=== PATIENT | male | born 1955 | race Caucasian/White ===

== ENCOUNTER 2022-05-29 22:20 | Inpatient (IN) ==
[2022-05-30] MEDS ORDERED: Ondansetron 4 MG/2 ML VIAL IVP PRN (06:42)
[2022-05-30] MEDS ORDERED: Naloxone 0.4 MG/ML INJ IVP PRN ×2 (06:42→09:34)
[2022-05-30 08:12] LABS: Basophils % 0.4 %; Eosinophils % 0.5 %; Hematocrit 34.9 % (37.5-50.1); Hemoglobin 12.8 g/dL (12.9-16.9); Lymphocytes # 0.4 K/mcL (0.6-4.6); Lymphocytes % 5.2 %; Mean Corpuscular HGB Conc 36.7 g/dL (31.6-35.5); Mean Corpuscular Hemoglobin 33.7 pg (28.0-33.3); Mean Corpuscular Volume 91.8 fL (83.0-100.0); Mean Platelet Volume 9.8 fL (9.4-12.4); Monocytes % 12.1 %; Neutrophils # 6.4 K/mcL (1.6-8.9); Platelet Count 235 K/mcL (140-400); Red Cell Distribution Width 11.6 % (11.5-14.5); Segmented Neutrophils % 80.8 %; White Blood Count 7.9 K/mcL (4.3-11.1)
[2022-05-30 08:21] LABS: INR 0.9; Prothrombin Time 9.9 Seconds (9.4-12.1)
[2022-05-30 08:25] LABS: Bilirubin,Urine Negative (Negative); Blood,Urine Negative (Negative); Clarity,Urine Clear (Clear); Color,Urine Light-Orange (Yellow); Glucose,Urine (UA) Normal (Normal); Ketones,Urine 40 mg/dL (Negative); Leukocyte Esterase,Urine Negative (Negative); Nitrite,Urine Negative (Negative); Protein,Urine Trace mg/dL (Neg-Trace); Specific Gravity,Urine 1.016 (1.010-1.025); Urobilinogen,Urine Normal (Normal)
[2022-05-30 08:38] LABS: Phosphorous 2.4 mg/dL (2.7-4.5)
[2022-05-30 08:49] LABS: Troponin I 0.05 ng/mL (< 0.04)
[2022-05-30 08:51] LABS: Alanine Aminotransferase 14 Units/L (7-52); Albumin 3.1 g/dL (3.5-5.7); Albumin/Globulin Ratio 1.5 (1.1-2.2); Alkaline Phosphatase 82 Units/L (34-104); Aspartate Amino Transferase 19 Units/L (13-39); BUN/Creatinine Ratio 25 (6-26); Bilirubin,Direct 0.2 mg/dL (0.0-0.2); Bilirubin,Indirect 0.6 mg/dL (0.0-1.0); Bilirubin,Total 0.8 mg/dL (0.3-1.0); Blood Urea Nitrogen 9 mg/dL (8-23); Calcium 7.9 mg/dL (8.6-10.3); Carbon Dioxide 25 mEq/L (23-29); Chloride 80 mEq/L (98-107); Globulin 2.1 g/dL (2.4-3.5); Glucose 89 mg/dL (70-105); Osmolality,Calculated 238 (280-300); Potassium 3.1 mEq/L (3.5-5.1); Sodium 115 mEq/L (136-145); Thyroid Stimulating Hormone 3.987 mcIU/mL (0.340-5.600); Total Protein 5.2 g/dL (6.4-8.9); eGFR For African Americans > 60 (> 60); eGFR For Non-African Americans > 60 (> 60)
[2022-05-30] MEDS ORDERED: *HR* LORazepam 2 MG/ML VIAL IVP PRN ×3 (09:34)
[2022-05-30 09:51] LABS: Chloride,Urine 29 mEq/L; Potassium,Urine 26.8 mEq/L; Sodium, Urine < 10.0 mEq/L
[2022-05-30] MEDS ORDERED: Perflutren Lipid Microsphere 1.3 ML in 0.9 % Sodium Chloride 8.7 ML IVP PRN (09:52)
[2022-05-30] MEDS: Folic Acid 1 MG TABLET PO SCH (10:15)
[2022-05-30] MEDS: Vitamin B Complex/Vit C/Vit E 1 EACH TABLET PO SCH (10:15)
[2022-05-30] MEDS: Thiamine (B-1) 100 MG TABLET PO SCH (10:15)
[2022-05-30 12:54] LABS: BUN/Creatinine Ratio 26 (6-26); Blood Urea Nitrogen 9 mg/dL (8-23); Carbon Dioxide 24 mEq/L (23-29); Chloride 80 mEq/L (98-107); Glucose 95 mg/dL (70-105); Osmolality,Calculated 236 (280-300); Potassium 3.2 mEq/L (3.5-5.1); Sodium 114 mEq/L (136-145); eGFR For African Americans > 60 (> 60); eGFR For Non-African Americans > 60 (> 60)
[2022-05-30] MEDS: Ipratropium/Albuterol Neb 3 ML IH PRN (21:26)
[2022-05-30] MEDS: 0.9 % Sodium Chloride 1,000 ML IVC SCH (21:30)
[2022-05-30 22:11] LABS: BUN/Creatinine Ratio 27 (6-26); Blood Urea Nitrogen 9 mg/dL (8-23); Calcium 8.2 mg/dL (8.6-10.3); Carbon Dioxide 25 mEq/L (23-29); Chloride 82 mEq/L (98-107); Glucose 99 mg/dL (70-105); Osmolality,Calculated 243 (280-300); Potassium 3.1 mEq/L (3.5-5.1); Sodium 117 mEq/L (136-145); eGFR For African Americans > 60 (> 60); eGFR For Non-African Americans > 60 (> 60)
[2022-05-31] MEDS: [UNRECOGNIZED DRUG - OTHER] IH SCH ×3 (00:26→21:05)
[2022-05-31] MEDS: BEVESPI AEROSPHERE IH SCH ×3 (00:26→21:05)
[2022-05-31] MEDS ORDERED: Mag Hydrox/Al Hydrox/Simeth 30 ML UDC PO PRN (00:54)
[2022-05-31 03:13] LABS: Basophils % 0.3 %; Eosinophils % 0.4 %; Hematocrit 35.1 % (37.5-50.1); Hemoglobin 12.9 g/dL (12.9-16.9); Immature Granulocytes % 1.6 % (0-4); Lymphocytes # 0.5 K/mcL (0.6-4.6); Lymphocytes % 7.9 %; Mean Corpuscular HGB Conc 36.8 g/dL (31.6-35.5); Mean Corpuscular Hemoglobin 33.7 pg (28.0-33.3); Mean Corpuscular Volume 91.6 fL (83.0-100.0); Monocytes # 0.7 K/mcL (0.0-1.3); Monocytes % 10.4 %; Neutrophils # 5.4 K/mcL (1.6-8.9); Platelet Count 268 K/mcL (140-400); Red Blood Count 3.83 M/mcL (4.19-5.50); Red Cell Distribution Width 11.7 % (11.5-14.5); Segmented Neutrophils % 79.4 %; White Blood Count 6.8 K/mcL (4.3-11.1)
[2022-05-31 03:47] LABS: Alanine Aminotransferase 15 Units/L (7-52); Albumin 3.1 g/dL (3.5-5.7); Albumin/Globulin Ratio 1.3 (1.1-2.2); Alkaline Phosphatase 81 Units/L (34-104); Aspartate Amino Transferase 20 Units/L (13-39); BUN/Creatinine Ratio 24 (6-26); Bilirubin,Total 0.7 mg/dL (0.3-1.0); Blood Urea Nitrogen 9 mg/dL (8-23); Calcium 8.3 mg/dL (8.6-10.3); Carbon Dioxide 26 mEq/L (23-29); Chloride 81 mEq/L (98-107); Globulin 2.3 g/dL (2.4-3.5); Glucose 98 mg/dL (70-105); Osmolality,Calculated 243 (280-300); Phosphorous 2.6 mg/dL (2.7-4.5); Potassium 3.3 mEq/L (3.5-5.1); Sodium 117 mEq/L (136-145); Total Protein 5.4 g/dL (6.4-8.9); eGFR For African Americans > 60 (> 60); eGFR For Non-African Americans > 60 (> 60)
[2022-05-31] MEDS: Thiamine (B-1) 100 MG TABLET PO SCH (08:16)
[2022-05-31] MEDS: Aspirin Enteric Coated 81 MG Tablet PO SCH (08:16)
[2022-05-31] MEDS: amLODIPine 5 MG TABLET PO SCH (08:16)
[2022-05-31] MEDS: Folic Acid 1 MG TABLET PO SCH ×2 (08:17→08:18)
[2022-05-31] MEDS: atenoloL 50 MG TABLET PO SCH (08:17)
[2022-05-31] MEDS: Vitamin B Complex/Vit C/Vit E 1 EACH TABLET PO SCH (08:17)
[2022-05-31] MEDS: Thiamine (B-1) 250 MG in 0.9 % Sodium Chloride 50 ML IVPB SCH ×3 (10:57→22:00)
[2022-05-31 13:05] LABS: BUN/Creatinine Ratio 33 (6-26); Blood Urea Nitrogen 13 mg/dL (8-23); Calcium 8.2 mg/dL (8.6-10.3); Carbon Dioxide 25 mEq/L (23-29); Chloride 86 mEq/L (98-107); Glucose 102 mg/dL (70-105); Osmolality,Calculated 250 (280-300); Potassium 3.3 mEq/L (3.5-5.1); Sodium 120 mEq/L (136-145); eGFR For African Americans > 60 (> 60); eGFR For Non-African Americans > 60 (> 60)
[2022-05-31] MEDS: *HR* Heparin 5,000 UNIT/ML VIAL SQ SCH (20:39)
[2022-05-31] MEDS: Ipratropium/Albuterol Neb 3 ML IH PRN (21:39)
[2022-06-01 01:38] LABS: Adenovirus Not Detected (Not Detect); Bordetella Pertussis Not Detected (Not Detect); Chlamydophila pneumoniae Not Detected (Not Detect); Coronavirus 229E Not Detected (Not Detect); Coronavirus HKU1 Not Detected (Not Detect); Coronavirus NL63 Not Detected (Not Detect); Coronavirus OC43 Not Detected (Not Detect); Human Metapneumovirus Not Detected (Not Detect); Human Rhinovirus/Enterovirus Not Detected (Not Detect); Influenza A Subtype 2009 H1 Not Detected (Not Detect); Influenza B Not Detected (Not Detect); Mycoplasma pneumoniae Not Detected (Not Detect); Parainfluenza Virus 1 Not Detected (Not Detect); Parainfluenza Virus 2 Not Detected (Not Detect); Parainfluenza Virus 3 Not Detected (Not Detect); Parainfluenza Virus 4 Not Detected (Not Detect); Respiratory Syncytial Virus Not Detected (Not Detect); SARS-CoV-2 Not Detected (Not Detect)
[2022-06-01 02:07] LABS: Basophils % 0.3 %; Eosinophils % 0.3 %; Hematocrit 32.5 % (37.5-50.1); Hemoglobin 11.9 g/dL (12.9-16.9); Lymphocytes # 0.5 K/mcL (0.6-4.6); Lymphocytes % 5.2 %; Mean Corpuscular HGB Conc 36.6 g/dL (31.6-35.5); Mean Corpuscular Hemoglobin 34.1 pg (28.0-33.3); Mean Corpuscular Volume 93.1 fL (83.0-100.0); Mean Platelet Volume 9.7 fL (9.4-12.4); Monocytes # 0.9 K/mcL (0.0-1.3); Monocytes % 8.8 %; Neutrophils # 8.5 K/mcL (1.6-8.9); Platelet Count 267 K/mcL (140-400); Red Blood Count 3.49 M/mcL (4.19-5.50); Red Cell Distribution Width 11.9 % (11.5-14.5); Segmented Neutrophils % 84.4 %
[2022-06-01] MEDS: *HR* Heparin 5,000 UNIT/ML VIAL SQ SCH ×3 (05:22→21:47)
[2022-06-01] MEDS: Ipratropium/Albuterol Neb 3 ML IH PRN (08:56)
[2022-06-01] MEDS: Folic Acid 1 MG TABLET PO SCH (09:18)
[2022-06-01] MEDS: amLODIPine 5 MG TABLET PO SCH (09:18)
[2022-06-01] MEDS: Thiamine (B-1) 250 MG in 0.9 % Sodium Chloride 50 ML IVPB SCH ×3 (09:18→23:13)
[2022-06-01] MEDS: atenoloL 50 MG TABLET PO SCH (09:18)
[2022-06-01] MEDS: Aspirin Enteric Coated 81 MG Tablet PO SCH (09:18)
[2022-06-01] MEDS: Vitamin B Complex/Vit C/Vit E 1 EACH TABLET PO SCH (09:18)
[2022-06-01] MEDS: BEVESPI AEROSPHERE IH SCH (10:01)
[2022-06-01] MEDS: [UNRECOGNIZED DRUG - OTHER] IH SCH (10:01)
[2022-06-01 12:20] LABS: BUN/Creatinine Ratio 37 (6-26); Blood Urea Nitrogen 18 mg/dL (8-23); Calcium 8.5 mg/dL (8.6-10.3); Carbon Dioxide 24 mEq/L (23-29); Chloride 88 mEq/L (98-107); Glucose 115 mg/dL (70-105); Osmolality,Calculated 255 (280-300); Potassium 3.9 mEq/L (3.5-5.1); Sodium 121 mEq/L (136-145); eGFR For African Americans > 60 (> 60); eGFR For Non-African Americans > 60 (> 60)
[2022-06-01] MEDS: 0.9 % Sodium Chloride 1,000 ML IVC SCH (13:29)
[2022-06-01] MEDS: Sennosides/Docusate Sodium TABLET PO SCH ×2 (13:35→21:46)
[2022-06-01] MEDS ORDERED: methylPREDNISolone 125 MG/2 ML VIAL IVP ONE (13:47)
[2022-06-01 14:11] LABS: BUN/Creatinine Ratio 38 (6-26); Blood Urea Nitrogen 18 mg/dL (8-23); Calcium 8.5 mg/dL (8.6-10.3); Carbon Dioxide 25 mEq/L (23-29); Chloride 88 mEq/L (98-107); Glucose 106 mg/dL (70-105); Osmolality,Calculated 254 (280-300); Potassium 4.1 mEq/L (3.5-5.1); Sodium 121 mEq/L (136-145); eGFR For African Americans > 60 (> 60); eGFR For Non-African Americans > 60 (> 60)
[2022-06-01 14:14] LABS: BUN/Creatinine Ratio 41 (6-26); Blood Urea Nitrogen 18 mg/dL (8-23); Calcium 8.3 mg/dL (8.6-10.3); Carbon Dioxide 24 mEq/L (23-29); Chloride 88 mEq/L (98-107); Glucose 103 mg/dL (70-105); Osmolality,Calculated 252 (280-300); Potassium 4.2 mEq/L (3.5-5.1); Sodium 120 mEq/L (136-145); eGFR For African Americans > 60 (> 60); eGFR For Non-African Americans > 60 (> 60)
[2022-06-01] MEDS: Ipratropium/Albuterol Neb 3 ML IH SCH ×3 (15:57→23:51)
[2022-06-01] MEDS: MethylPREDNISolone 40 MG/ML VIAL IVP SCH (18:23)
[2022-06-01] MEDS: GuaiFENesin/Dextromethorphan TABLET PO SCH (22:00)
[2022-06-02] MEDS: Ipratropium/Albuterol Neb 3 ML IH SCH ×6 (04:01→23:10)
[2022-06-02 06:15] LABS: Basophils % 0.2 %; Hematocrit 33.7 % (37.5-50.1); Hemoglobin 12.1 g/dL (12.9-16.9); Immature Granulocytes % 1.1 % (0-4); Lymphocytes # 0.5 K/mcL (0.6-4.6); Lymphocytes % 3.1 %; Mean Corpuscular HGB Conc 35.9 g/dL (31.6-35.5); Mean Corpuscular Hemoglobin 34.1 pg (28.0-33.3); Mean Corpuscular Volume 94.9 fL (83.0-100.0); Mean Platelet Volume 9.6 fL (9.4-12.4); Monocytes # 0.7 K/mcL (0.0-1.3); Monocytes % 3.8 %; Platelet Count 282 K/mcL (140-400); Red Blood Count 3.55 M/mcL (4.19-5.50); Segmented Neutrophils % 91.8 %
[2022-06-02 06:17] LABS: White Blood Count 17.4 K/mcL (4.3-11.1)
[2022-06-02] MEDS: *HR* Heparin 5,000 UNIT/ML VIAL SQ SCH ×3 (06:29→19:40)
[2022-06-02] MEDS: MethylPREDNISolone 40 MG/ML VIAL IVP SCH ×2 (06:29→18:25)
[2022-06-02] MEDS: 0.9 % Sodium Chloride 1,000 ML IVC SCH ×2 (06:30→13:22)
[2022-06-02 07:23] LABS: BUN/Creatinine Ratio 43 (6-26); Blood Urea Nitrogen 24 mg/dL (8-23); Calcium 8.6 mg/dL (8.6-10.3); Carbon Dioxide 18 mEq/L (23-29); Chloride 90 mEq/L (98-107); Glucose 133 mg/dL (70-105); Osmolality,Calculated 258 (280-300); Potassium 4.6 mEq/L (3.5-5.1); Sodium 121 mEq/L (136-145); eGFR For African Americans > 60 (> 60); eGFR For Non-African Americans > 60 (> 60)
[2022-06-02] MEDS: Aspirin Enteric Coated 81 MG Tablet PO SCH (10:31)
[2022-06-02] MEDS: atenoloL 50 MG TABLET PO SCH (10:39)
[2022-06-02] MEDS: Folic Acid 1 MG TABLET PO SCH (10:41)
[2022-06-02] MEDS: amLODIPine 5 MG TABLET PO SCH (10:42)
[2022-06-02] MEDS: Sennosides/Docusate Sodium TABLET PO SCH ×2 (10:42→19:39)
[2022-06-02] MEDS: GuaiFENesin/Dextromethorphan TABLET PO SCH ×2 (10:42→19:40)
[2022-06-02] MEDS: Vitamin B Complex/Vit C/Vit E 1 EACH TABLET PO SCH (10:42)
[2022-06-02] MEDS ORDERED: Azithromycin 250 MG TABLET PO ONE (11:29)
[2022-06-02 11:58] LABS: VBG HCO3 21 mEq/L (21-27); VBG PCO2 37 mmHg (41-51); VBG PH 7.36 pH Units (7.32-7.42); VBG PO2 40 mmHg (25-50)
[2022-06-02 12:39] LABS: BUN/Creatinine Ratio 41 (6-26); Blood Urea Nitrogen 26 mg/dL (8-23); Calcium 8.6 mg/dL (8.6-10.3); Carbon Dioxide 20 mEq/L (23-29); Chloride 89 mEq/L (98-107); Glucose 133 mg/dL (70-105); Osmolality,Calculated 261 (280-300); Potassium 4.5 mEq/L (3.5-5.1); Sodium 122 mEq/L (136-145); eGFR For African Americans > 60 (> 60); eGFR For Non-African Americans > 60 (> 60)
[2022-06-02] MEDS: Thiamine (B-1) 100 MG TABLET PO SCH (13:22)
[2022-06-03 01:32] LABS: Basophils % 0.1 %; Hematocrit 35.4 % (37.5-50.1); Hemoglobin 12.6 g/dL (12.9-16.9); Immature Granulocytes % 1.3 % (0-4); Lymphocytes # 0.4 K/mcL (0.6-4.6); Mean Corpuscular HGB Conc 35.6 g/dL (31.6-35.5); Mean Corpuscular Volume 95.4 fL (83.0-100.0); Mean Platelet Volume 9.7 fL (9.4-12.4); Monocytes % 5.1 %; Neutrophils # 18.4 K/mcL (1.6-8.9); Platelet Count 294 K/mcL (140-400); Red Blood Count 3.71 M/mcL (4.19-5.50); Red Cell Distribution Width 12.3 % (11.5-14.5); Segmented Neutrophils % 91.5 %; White Blood Count 20.1 K/mcL (4.3-11.1)
[2022-06-03 01:48] LABS: BUN/Creatinine Ratio 50 (6-26); Blood Urea Nitrogen 30 mg/dL (8-23); Calcium 8.7 mg/dL (8.6-10.3); Carbon Dioxide 21 mEq/L (23-29); Chloride 92 mEq/L (98-107); Glucose 139 mg/dL (70-105); Osmolality,Calculated 268 (280-300); Potassium 4.5 mEq/L (3.5-5.1); Sodium 125 mEq/L (136-145); eGFR For African Americans > 60 (> 60); eGFR For Non-African Americans > 60 (> 60)
[2022-06-03] MEDS: Ipratropium/Albuterol Neb 3 ML IH SCH ×4 (03:48→15:53)
[2022-06-03] MEDS: *HR* Heparin 5,000 UNIT/ML VIAL SQ SCH ×3 (05:49→20:29)
[2022-06-03] MEDS: MethylPREDNISolone 40 MG/ML VIAL IVP SCH (05:50)
[2022-06-03] MEDS ORDERED: Thiamine (B-1) 100 MG TABLET PO SCH (09:00)
[2022-06-03] MEDS: Vitamin B Complex/Vit C/Vit E 1 EACH TABLET PO SCH (09:07)
[2022-06-03] MEDS: Folic Acid 1 MG TABLET PO SCH (09:07)
[2022-06-03] MEDS: GuaiFENesin/Dextromethorphan TABLET PO SCH ×2 (09:07→20:29)
[2022-06-03] MEDS: amLODIPine 5 MG TABLET PO SCH (09:07)
[2022-06-03] MEDS: Azithromycin 250 MG TABLET PO SCH (09:07)
[2022-06-03] MEDS: Sennosides/Docusate Sodium TABLET PO SCH ×2 (09:07→20:29)
[2022-06-03] MEDS: Thiamine (B-1) 100 MG TABLET PO SCH (09:08)
[2022-06-03] MEDS: Aspirin Enteric Coated 81 MG Tablet PO SCH (09:08)
[2022-06-03] MEDS: atenoloL 50 MG TABLET PO SCH (09:08)
[2022-06-03] MEDS: 0.9 % Sodium Chloride 1,000 ML IVC SCH (12:00)
[2022-06-03] MEDS: predniSONE 20 MG TABLET PO SCH (15:41)
[2022-06-03] MEDS ORDERED: Ipratropium/Albuterol Neb 3 ML IH PRN (17:54)
[2022-06-04 03:02] LABS: Hematocrit 34.4 % (37.5-50.1); Hemoglobin 12.1 g/dL (12.9-16.9); Mean Corpuscular HGB Conc 35.2 g/dL (31.6-35.5); Mean Corpuscular Hemoglobin 33.7 pg (28.0-33.3); Mean Corpuscular Volume 95.8 fL (83.0-100.0); Platelet Count 280 K/mcL (140-400); Red Blood Count 3.59 M/mcL (4.19-5.50); Red Cell Distribution Width 12.4 % (11.5-14.5); White Blood Count 14.2 K/mcL (4.3-11.1)
[2022-06-04 03:09] LABS: BUN/Creatinine Ratio 49 (6-26); Blood Urea Nitrogen 33 mg/dL (8-23); Calcium 8.9 mg/dL (8.6-10.3); Carbon Dioxide 24 mEq/L (23-29); Chloride 94 mEq/L (98-107); Glucose 145 mg/dL (70-105); Osmolality,Calculated 272 (280-300); Potassium 4.4 mEq/L (3.5-5.1); Sodium 126 mEq/L (136-145); eGFR For African Americans > 60 (> 60); eGFR For Non-African Americans > 60 (> 60)
[2022-06-04] MEDS: *HR* Heparin 5,000 UNIT/ML VIAL SQ SCH ×3 (04:59→22:41)
[2022-06-04] MEDS: 0.9 % Sodium Chloride 1,000 ML IVC SCH (07:54)
[2022-06-04] MEDS: Thiamine (B-1) 100 MG TABLET PO SCH (07:55)
[2022-06-04] MEDS: GuaiFENesin/Dextromethorphan TABLET PO SCH ×2 (07:55→20:10)
[2022-06-04] MEDS: atenoloL 50 MG TABLET PO SCH (07:55)
[2022-06-04] MEDS: amLODIPine 5 MG TABLET PO SCH (07:55)
[2022-06-04] MEDS: Azithromycin 250 MG TABLET PO SCH (07:55)
[2022-06-04] MEDS: Sennosides/Docusate Sodium TABLET PO SCH ×2 (07:55→20:10)
[2022-06-04] MEDS: Aspirin Enteric Coated 81 MG Tablet PO SCH (07:55)
[2022-06-04] MEDS: predniSONE 20 MG TABLET PO SCH (07:55)
[2022-06-04] MEDS: Folic Acid 1 MG TABLET PO SCH (07:55)
[2022-06-04] MEDS: Megestrol Acetate 400 MG/10 ML UDC PO SCH (14:46)
[2022-06-04] MEDS: Vitamin B Complex/Vit C/Vit E 1 EACH TABLET PO SCH (14:46)
[2022-06-04] MEDS: MOM Conc 10 ML UD.LIQ PO ONE ×2 (14:47→15:34)
[2022-06-04 16:36] LABS: Bacteria,Urine Few per hpf (None-Few); Bilirubin,Urine Negative (Negative); Blood,Urine Large (Negative); Clarity,Urine Turbid (Clear); Color,Urine Yellow (Yellow); Glucose,Urine (UA) Normal (Normal); Ketones,Urine Negative (Negative); Leukocyte Esterase,Urine Small (Negative); Nitrite,Urine Negative (Negative); Protein,Urine Trace mg/dL (Neg-Trace); RBC,Urine 15-30 per hpf (0-3); Specific Gravity,Urine 1.017 (1.010-1.025); Urobilinogen,Urine Normal (Normal)
[2022-06-05] MEDS: 0.9 % Sodium Chloride 1,000 ML IVC SCH (00:03)
[2022-06-05 02:06] LABS: Hematocrit 33.4 % (37.5-50.1); Hemoglobin 11.6 g/dL (12.9-16.9); Mean Corpuscular HGB Conc 34.7 g/dL (31.6-35.5); Mean Corpuscular Hemoglobin 33.5 pg (28.0-33.3); Mean Corpuscular Volume 96.5 fL (83.0-100.0); Mean Platelet Volume 9.9 fL (9.4-12.4); Platelet Count 265 K/mcL (140-400); Red Blood Count 3.46 M/mcL (4.19-5.50); Red Cell Distribution Width 12.5 % (11.5-14.5); White Blood Count 10.9 K/mcL (4.3-11.1)
[2022-06-05 02:25] LABS: BUN/Creatinine Ratio 53 (6-26); Blood Urea Nitrogen 25 mg/dL (8-23); Calcium 8.7 mg/dL (8.6-10.3); Carbon Dioxide 27 mEq/L (23-29); Chloride 96 mEq/L (98-107); Glucose 113 mg/dL (70-105); Osmolality,Calculated 273 (280-300); Potassium 4.2 mEq/L (3.5-5.1); Sodium 129 mEq/L (136-145); eGFR For African Americans > 60 (> 60); eGFR For Non-African Americans > 60 (> 60)
[2022-06-05] MEDS: *HR* Heparin 5,000 UNIT/ML VIAL SQ SCH ×3 (05:45→19:58)
[2022-06-05] MEDS ORDERED: Lidocaine -MPF 2% 5 ML VIAL ONE (09:21)
[2022-06-05] MEDS ORDERED: *HR* Propofol 200 MG/20 ML VIAL IVP ONE (09:21)
[2022-06-05] MEDS ORDERED: *HR* Succinylcholine 200 MG/10 ML VIAL IVP ONE (09:21)
[2022-06-05] MEDS: Thiamine (B-1) 100 MG TABLET PO SCH ×2 (10:20→11:55)
[2022-06-05] MEDS: predniSONE 20 MG TABLET PO SCH (10:20)
[2022-06-05] MEDS: GuaiFENesin/Dextromethorphan TABLET PO SCH ×3 (10:21→19:58)
[2022-06-05] MEDS: amLODIPine 5 MG TABLET PO SCH ×2 (10:21→11:54)
[2022-06-05] MEDS: atenoloL 50 MG TABLET PO SCH ×2 (10:21→11:55)
[2022-06-05] MEDS: Azithromycin 250 MG TABLET PO SCH ×2 (10:21→11:55)
[2022-06-05] MEDS: Aspirin Enteric Coated 81 MG Tablet PO SCH ×2 (10:21→11:54)
[2022-06-05] MEDS: Vitamin B Complex/Vit C/Vit E 1 EACH TABLET PO SCH ×2 (10:21→11:55)
[2022-06-05] MEDS: Folic Acid 1 MG TABLET PO SCH ×2 (10:21→11:54)
[2022-06-05] MEDS: Sennosides/Docusate Sodium TABLET PO SCH ×3 (10:22→19:58)
[2022-06-05] MEDS: Megestrol Acetate 400 MG/10 ML UDC PO SCH ×2 (10:22→11:54)
[2022-06-05] MEDS ORDERED: *HR* Vasopressin 20 UNIT/ML VIAL ONE (14:15)
[2022-06-05] MEDS ORDERED: Ipratropium/Albuterol Neb 3 ML IH ONE (15:11)
[2022-06-05] MEDS ORDERED: Ipratropium/Albuterol Neb 3 ML IH SCH (16:00)
[2022-06-06 02:47] LABS: Basophils % 0.2 %; Hematocrit 31.9 % (37.5-50.1); Immature Granulocytes % 1.3 % (0-4); Lymphocytes # 0.6 K/mcL (0.6-4.6); Lymphocytes % 5.1 %; Mean Corpuscular HGB Conc 34.5 g/dL (31.6-35.5); Mean Corpuscular Hemoglobin 34.3 pg (28.0-33.3); Mean Corpuscular Volume 99.4 fL (83.0-100.0); Mean Platelet Volume 9.7 fL (9.4-12.4); Monocytes # 0.7 K/mcL (0.0-1.3); Monocytes % 5.5 %; Neutrophils # 10.8 K/mcL (1.6-8.9); Platelet Count 230 K/mcL (140-400); Red Blood Count 3.21 M/mcL (4.19-5.50); Red Cell Distribution Width 12.7 % (11.5-14.5); Segmented Neutrophils % 87.9 %; White Blood Count 12.3 K/mcL (4.3-11.1)
[2022-06-06 03:05] LABS: BUN/Creatinine Ratio 59 (6-26); Blood Urea Nitrogen 22 mg/dL (8-23); Calcium 8.4 mg/dL (8.6-10.3); Carbon Dioxide 25 mEq/L (23-29); Chloride 102 mEq/L (98-107); Glucose 107 mg/dL (70-105); Osmolality,Calculated 280 (280-300); Potassium 4.7 mEq/L (3.5-5.1); Sodium 133 mEq/L (136-145); eGFR For African Americans > 60 (> 60); eGFR For Non-African Americans > 60 (> 60)
[2022-06-06] MEDS: *HR* Heparin 5,000 UNIT/ML VIAL SQ SCH ×3 (04:33→21:32)
[2022-06-06] MEDS: Folic Acid 1 MG TABLET PO SCH (07:47)
[2022-06-06] MEDS: GuaiFENesin/Dextromethorphan TABLET PO SCH ×2 (07:47→21:31)
[2022-06-06] MEDS: Aspirin Enteric Coated 81 MG Tablet PO SCH (07:47)
[2022-06-06] MEDS: amLODIPine 5 MG TABLET PO SCH (07:47)
[2022-06-06] MEDS: Vitamin B Complex/Vit C/Vit E 1 EACH TABLET PO SCH (07:47)
[2022-06-06] MEDS: Thiamine (B-1) 100 MG TABLET PO SCH (07:48)
[2022-06-06] MEDS: Azithromycin 250 MG TABLET PO SCH (07:48)
[2022-06-06] MEDS: Sennosides/Docusate Sodium TABLET PO SCH ×2 (07:48→21:31)
[2022-06-06] MEDS: atenoloL 50 MG TABLET PO SCH (07:48)
[2022-06-06] MEDS: Megestrol Acetate 400 MG/10 ML UDC PO SCH (07:49)
[2022-06-06] MEDS ORDERED: Cefepime HCl 2,000 MG in 0.9 % Sodium Chloride Mini Bag 100 ML IVPB SCH (08:34)
[2022-06-06] MEDS ORDERED: Vancomycin 1,250 MG/262.5 ML IV.SOLN IVPB SCH (09:00)
[2022-06-06] MEDS: predniSONE 20 MG TABLET PO SCH (09:57)
[2022-06-06] MEDS: Amoxicillin 500 MG CAPSULE PO SCH ×2 (15:12→21:31)
[2022-06-06] MEDS: Lactobacillus 1 EACH CAP.SPRINK PO SCH (21:31)
[2022-06-07 05:43] LABS: Basophils % 0.2 %; Eosinophils % 0.1 %; Hematocrit 30.6 % (37.5-50.1); Hemoglobin 10.5 g/dL (12.9-16.9); Immature Granulocytes % 1.3 % (0-4); Lymphocytes # 0.8 K/mcL (0.6-4.6); Mean Corpuscular HGB Conc 34.3 g/dL (31.6-35.5); Mean Corpuscular Hemoglobin 33.9 pg (28.0-33.3); Mean Corpuscular Volume 98.7 fL (83.0-100.0); Mean Platelet Volume 9.6 fL (9.4-12.4); Monocytes # 0.8 K/mcL (0.0-1.3); Monocytes % 6.2 %; Neutrophils # 11.5 K/mcL (1.6-8.9); Platelet Count 221 K/mcL (140-400); Red Cell Distribution Width 12.7 % (11.5-14.5); Segmented Neutrophils % 86.2 %; White Blood Count 13.3 K/mcL (4.3-11.1)
[2022-06-07 06:07] LABS: BUN/Creatinine Ratio 56 (6-26); Blood Urea Nitrogen 19 mg/dL (8-23); Calcium 8.1 mg/dL (8.6-10.3); Carbon Dioxide 25 mEq/L (23-29); Chloride 100 mEq/L (98-107); Glucose 83 mg/dL (70-105); Osmolality,Calculated 273 (280-300); Potassium 3.9 mEq/L (3.5-5.1); Sodium 131 mEq/L (136-145); eGFR For African Americans > 60 (> 60); eGFR For Non-African Americans > 60 (> 60)
[2022-06-07] MEDS: *HR* Heparin 5,000 UNIT/ML VIAL SQ SCH ×3 (06:08→20:25)
[2022-06-07] MEDS ORDERED: Bisacodyl 10 MG RECTAL SUPPOSITORY RC PRN (07:55)
[2022-06-07] MEDS: levoFLOXacin 750 MG/150 ML 750 MG/150 ML BAG IVPB SCH (10:23)
[2022-06-07] MEDS: Amoxicillin 500 MG CAPSULE PO SCH ×3 (10:24→20:24)
[2022-06-07] MEDS: Lactobacillus 1 EACH CAP.SPRINK PO SCH ×2 (10:24→20:24)
[2022-06-07] MEDS: Megestrol Acetate 400 MG/10 ML UDC PO SCH (10:24)
[2022-06-07] MEDS: GuaiFENesin/Dextromethorphan TABLET PO SCH ×2 (10:25→20:25)
[2022-06-07] MEDS: predniSONE 20 MG TABLET PO SCH (10:26)
[2022-06-07 11:37] LABS: ANA IgG by ELISA NONE DETECTED (None Detected)
[2022-06-07] MEDS: Vitamin B Complex/Vit C/Vit E 1 EACH TABLET PO SCH (13:10)
[2022-06-07] MEDS: Thiamine (B-1) 100 MG TABLET PO SCH (13:10)
[2022-06-07] MEDS: amLODIPine 5 MG TABLET PO SCH (13:10)
[2022-06-07] MEDS: atenoloL 50 MG TABLET PO SCH (13:10)
[2022-06-07] MEDS: Aspirin Enteric Coated 81 MG Tablet PO SCH (13:11)
[2022-06-07] MEDS: Folic Acid 1 MG TABLET PO SCH (13:11)
[2022-06-07] MEDS: Sennosides/Docusate Sodium TABLET PO SCH ×2 (13:13→20:25)
[2022-06-08 00:04] LABS: ANCA IFA Titer <1:20 (<1:20)
[2022-06-08 04:36] LABS: Basophils % 0.2 %; Hematocrit 31.9 % (37.5-50.1); Immature Granulocytes % 1.2 % (0-4); Lymphocytes # 0.8 K/mcL (0.6-4.6); Mean Corpuscular HGB Conc 34.5 g/dL (31.6-35.5); Mean Corpuscular Hemoglobin 34.1 pg (28.0-33.3); Mean Corpuscular Volume 98.8 fL (83.0-100.0); Mean Platelet Volume 9.4 fL (9.4-12.4); Monocytes # 0.9 K/mcL (0.0-1.3); Monocytes % 5.9 %; Neutrophils # 13.1 K/mcL (1.6-8.9); Platelet Count 241 K/mcL (140-400); Red Blood Count 3.23 M/mcL (4.19-5.50); Red Cell Distribution Width 12.6 % (11.5-14.5); Segmented Neutrophils % 87.7 %
[2022-06-08 05:00] LABS: BUN/Creatinine Ratio 53 (6-26); Blood Urea Nitrogen 18 mg/dL (8-23); Calcium 8.2 mg/dL (8.6-10.3); Carbon Dioxide 25 mEq/L (23-29); Chloride 98 mEq/L (98-107); Glucose 101 mg/dL (70-105); Osmolality,Calculated 270 (280-300); Potassium 3.9 mEq/L (3.5-5.1); Sodium 129 mEq/L (136-145); eGFR For African Americans > 60 (> 60); eGFR For Non-African Americans > 60 (> 60)
[2022-06-08] MEDS: *HR* Heparin 5,000 UNIT/ML VIAL SQ SCH ×3 (05:02→22:48)
[2022-06-08 06:42] LABS: ANCA IFA Pattern NONE DETECTED (None Detected); Serine Protease-3 Antibody 1 AU/mL (0-19)
[2022-06-08] MEDS: Vitamin B Complex/Vit C/Vit E 1 EACH TABLET PO SCH (09:56)
[2022-06-08] MEDS: atenoloL 50 MG TABLET PO SCH (09:57)
[2022-06-08] MEDS: Folic Acid 1 MG TABLET PO SCH (09:57)
[2022-06-08] MEDS: Amoxicillin 500 MG CAPSULE PO SCH (09:57)
[2022-06-08] MEDS: GuaiFENesin/Dextromethorphan TABLET PO SCH ×2 (09:57→20:09)
[2022-06-08] MEDS: amLODIPine 5 MG TABLET PO SCH (09:57)
[2022-06-08] MEDS: Lactobacillus 1 EACH CAP.SPRINK PO SCH ×2 (09:57→20:09)
[2022-06-08] MEDS: Thiamine (B-1) 100 MG TABLET PO SCH (09:57)
[2022-06-08] MEDS: Sennosides/Docusate Sodium TABLET PO SCH ×2 (09:58→20:09)
[2022-06-08] MEDS: Aspirin Enteric Coated 81 MG Tablet PO SCH (09:58)
[2022-06-08] MEDS: levoFLOXacin 750 MG/150 ML 750 MG/150 ML BAG IVPB SCH (10:06)
[2022-06-08] MEDS: Megestrol Acetate 400 MG/10 ML UDC PO SCH (10:07)
[2022-06-08] MEDS ORDERED: Linezolid 600 MG TABLET PO SCH ×2 (11:00→11:05)
[2022-06-08] MEDS ORDERED: Iopamidol - 370 500 ML MLS IVP ONE ×2 (17:16→20:25)
[2022-06-08 17:17] LABS: Hematocrit 32.6 % (37.5-50.1); Hemoglobin 11.1 g/dL (12.9-16.9); Mean Corpuscular Hemoglobin 33.9 pg (28.0-33.3); Mean Corpuscular Volume 99.7 fL (83.0-100.0); Mean Platelet Volume 9.4 fL (9.4-12.4); Platelet Count 226 K/mcL (140-400); Red Blood Count 3.27 M/mcL (4.19-5.50); Red Cell Distribution Width 12.7 % (11.5-14.5); White Blood Count 13.4 K/mcL (4.3-11.1)
[2022-06-08] MEDS ORDERED: 0.9 % Sodium Chloride 500 ML IVC ONE (17:18)
[2022-06-08 18:16] LABS: Alanine Aminotransferase 52 Units/L (7-52); Albumin 2.6 g/dL (3.5-5.7); Albumin/Globulin Ratio 1.3 (1.1-2.2); Alkaline Phosphatase 80 Units/L (34-104); Aspartate Amino Transferase 32 Units/L (13-39); Bilirubin,Direct 0.1 mg/dL (0.0-0.2); Bilirubin,Indirect 0.3 mg/dL (0.0-1.0); Bilirubin,Total 0.4 mg/dL (0.3-1.0); Total Protein 4.6 g/dL (6.4-8.9)
[2022-06-08 18:17] LABS: Troponin I < 0.03 ng/mL (< 0.04)
[2022-06-08] MEDS: Vancomycin 1,250 MG/262.5 ML IV.SOLN IVPB SCH (18:26)
[2022-06-09] MEDS ORDERED: Dexamethasone Sodium Phos/PF 10 MG/ML VIAL IVP SCH (00:15)
[2022-06-09] MEDS ORDERED: Remdesivir 200 MG in 0.9 % Sodium Chloride 100 ML IVPB ONE (01:00)
[2022-06-09] MEDS: Ipratropium 1 PUFF INHALER IH SCH ×7 (03:28→23:14)
[2022-06-09 03:41] LABS: Albumin 2.4 g/dL (3.5-5.7); Albumin/Globulin Ratio 1.3 (1.1-2.2); Bilirubin,Direct 0.1 mg/dL (0.0-0.2); Bilirubin,Indirect 0.3 mg/dL (0.0-1.0); Bilirubin,Total 0.4 mg/dL (0.3-1.0); Globulin 1.9 g/dL (2.4-3.5); Total Protein 4.3 g/dL (6.4-8.9)
[2022-06-09 03:43] LABS: BUN/Creatinine Ratio 43 (6-26); Blood Urea Nitrogen 13 mg/dL (8-23); Calcium 7.6 mg/dL (8.6-10.3); Carbon Dioxide 25 mEq/L (23-29); Chloride 101 mEq/L (98-107); Glucose 111 mg/dL (70-105); Osmolality,Calculated 275 (280-300); Potassium 3.2 mEq/L (3.5-5.1); Sodium 132 mEq/L (136-145); eGFR For African Americans > 60 (> 60); eGFR For Non-African Americans > 60 (> 60)
[2022-06-09 03:47] LABS: C-Reactive Protein 32 mg/L (Less than 10)
[2022-06-09 04:00] LABS: Ferritin 377 ng/mL (20-250)
[2022-06-09 06:03] LABS: Basophils % 0.2 %; Eosinophils % 0.1 %; Hemoglobin 10.6 g/dL (12.9-16.9); Immature Granulocytes % 1.8 % (0-4); Lymphocytes # 0.4 K/mcL (0.6-4.6); Lymphocytes % 2.4 %; Mean Corpuscular HGB Conc 35.3 g/dL (31.6-35.5); Mean Corpuscular Hemoglobin 34.6 pg (28.0-33.3); Monocytes # 0.2 K/mcL (0.0-1.3); Monocytes % 1.4 %; Neutrophils # 13.8 K/mcL (1.6-8.9); Red Blood Count 3.06 M/mcL (4.19-5.50); Red Cell Distribution Width 12.6 % (11.5-14.5); Segmented Neutrophils % 94.1 %; White Blood Count 14.7 K/mcL (4.3-11.1)
[2022-06-09 06:06] LABS: Platelet Count < 2 K/mcL (140-400)
[2022-06-09] MEDS: *HR* Heparin 5,000 UNIT/ML VIAL SQ SCH (06:35)
[2022-06-09] MEDS: Vancomycin 1,250 MG/262.5 ML IV.SOLN IVPB SCH ×2 (06:49→18:19)
[2022-06-09 06:56] LABS: Basophils % 0.2 %
[2022-06-09 06:58] LABS: Hematocrit 29.6 % (37.5-50.1); Hemoglobin 10.2 g/dL (12.9-16.9); Immature Granulocytes % 2.1 % (0-4); Immature Platelets 32.6 % (1.1-6.1); Lymphocytes # 0.4 K/mcL (0.6-4.6); Lymphocytes % 2.5 %; Mean Corpuscular HGB Conc 34.5 g/dL (31.6-35.5); Mean Corpuscular Hemoglobin 33.6 pg (28.0-33.3); Mean Corpuscular Volume 97.4 fL (83.0-100.0); Monocytes # 0.2 K/mcL (0.0-1.3); Monocytes % 1.1 %; Neutrophils # 13.3 K/mcL (1.6-8.9); Red Blood Count 3.04 M/mcL (4.19-5.50); Red Cell Distribution Width 12.6 % (11.5-14.5); Segmented Neutrophils % 94.1 %; White Blood Count 14.1 K/mcL (4.3-11.1)
[2022-06-09 07:12] LABS: Platelet Count 2 K/mcL (140-400)
[2022-06-09] MEDS: Megestrol Acetate 400 MG/10 ML UDC PO SCH (09:04)
[2022-06-09] MEDS: Folic Acid 1 MG TABLET PO SCH (09:04)
[2022-06-09] MEDS: Aspirin Enteric Coated 81 MG Tablet PO SCH (09:04)
[2022-06-09] MEDS: Sennosides/Docusate Sodium TABLET PO SCH ×2 (09:04→20:11)
[2022-06-09] MEDS: Thiamine (B-1) 100 MG TABLET PO SCH (09:05)
[2022-06-09] MEDS: amLODIPine 5 MG TABLET PO SCH (09:05)
[2022-06-09] MEDS: Lactobacillus 1 EACH CAP.SPRINK PO SCH ×2 (09:05→20:11)
[2022-06-09] MEDS: Vitamin B Complex/Vit C/Vit E 1 EACH TABLET PO SCH (09:05)
[2022-06-09] MEDS: GuaiFENesin/Dextromethorphan TABLET PO SCH ×2 (09:05→20:11)
[2022-06-09] MEDS: atenoloL 50 MG TABLET PO SCH (09:05)
[2022-06-09 10:44] LABS: Hepatitis B Core IgM Nonreactive (Nonreactive)
[2022-06-09 10:45] LABS: HIV-1&2 Antibody & p24 Ag Nonreactive (Nonreactive); Hepatitis A Antibody IgM Nonreactive (Nonreactive); Hepatitis C Virus Antibody Nonreactive (Nonreactive)
[2022-06-09 10:59] LABS: Hepatitis B Surface Antigen Nonreactive (Nonreactive)
[2022-06-09] MEDS ORDERED: 0.9 % Sodium Chloride 250 ML ONE (12:35)
[2022-06-09] MEDS: levoFLOXacin 750 MG/150 ML 750 MG/150 ML BAG IVPB SCH (12:49)
[2022-06-09 12:53] LABS: Magnesium 1.6 mg/dL (1.6-2.6)
[2022-06-09 15:54] LABS: Mean Platelet Volume 11.5 fL (9.4-12.4)
[2022-06-09] MEDS: Cefepime HCl 2,000 MG in 0.9 % Sodium Chloride Mini Bag 100 ML IVPB SCH ×2 (17:32→23:40)
[2022-06-09] MEDS: predniSONE 20 MG TABLET PO SCH (18:18)
[2022-06-09 21:16] LABS: Hemoglobin 8.8 g/dL (12.9-16.9); Mean Corpuscular Volume 97.7 fL (83.0-100.0); Red Cell Distribution Width 12.7 % (11.5-14.5)
[2022-06-09 21:18] LABS: Basophils % 0.2 %; Hematocrit 25.7 % (37.5-50.1); Immature Granulocytes % 1.9 % (0-4); Immature Platelets 8.4 % (1.1-6.1); Lymphocytes # 0.5 K/mcL (0.6-4.6); Lymphocytes % 3.2 %; Mean Corpuscular HGB Conc 34.2 g/dL (31.6-35.5); Mean Corpuscular Hemoglobin 33.5 pg (28.0-33.3); Mean Platelet Volume 10.6 fL (9.4-12.4); Monocytes # 0.5 K/mcL (0.0-1.3); Monocytes % 2.9 %; Neutrophils # 14.5 K/mcL (1.6-8.9); Red Blood Count 2.63 M/mcL (4.19-5.50); Segmented Neutrophils % 91.8 %; White Blood Count 15.8 K/mcL (4.3-11.1)
[2022-06-09 21:20] LABS: Platelet Count 70 K/mcL (140-400)
[2022-06-10] MEDS ORDERED: Remdesivir 100 MG in 0.9 % Sodium Chloride 100 ML IVPB SCH (01:00)
[2022-06-10] MEDS: Ipratropium 1 PUFF INHALER IH SCH ×6 (04:11→23:57)
[2022-06-10 05:55] LABS: Hemoglobin 8.4 g/dL (12.9-16.9)
[2022-06-10 05:58] LABS: Basophils % 0.2 %; Immature Granulocytes % 1.8 % (0-4); Immature Platelets 8.7 % (1.1-6.1); Lymphocytes # 0.5 K/mcL (0.6-4.6); Lymphocytes % 3.9 %; Mean Corpuscular Hemoglobin 33.9 pg (28.0-33.3); Mean Corpuscular Volume 96.8 fL (83.0-100.0); Mean Platelet Volume 11.6 fL (9.4-12.4); Monocytes # 0.6 K/mcL (0.0-1.3); Monocytes % 4.4 %; Neutrophils # 12.4 K/mcL (1.6-8.9); Red Blood Count 2.48 M/mcL (4.19-5.50); Red Cell Distribution Width 12.6 % (11.5-14.5); Segmented Neutrophils % 89.7 %; White Blood Count 13.8 K/mcL (4.3-11.1)
[2022-06-10 06:01] LABS: Platelet Count 89 K/mcL (140-400)
[2022-06-10 06:04] LABS: INR 1.1; Prothrombin Time 11.7 Seconds (9.4-12.1)
[2022-06-10 06:25] LABS: Albumin 2.4 g/dL (3.5-5.7); Albumin/Globulin Ratio 1.3 (1.1-2.2); BUN/Creatinine Ratio 45 (6-26); Bilirubin,Direct 0.1 mg/dL (0.0-0.2); Bilirubin,Indirect 0.2 mg/dL (0.0-1.0); Bilirubin,Total 0.3 mg/dL (0.3-1.0); Blood Urea Nitrogen 13 mg/dL (8-23); Calcium 7.5 mg/dL (8.6-10.3); Carbon Dioxide 24 mEq/L (23-29); Chloride 99 mEq/L (98-107); Globulin 1.8 g/dL (2.4-3.5); Glucose 142 mg/dL (70-105); Osmolality,Calculated 267 (280-300); Potassium 3.9 mEq/L (3.5-5.1); Sodium 127 mEq/L (136-145); Total Protein 4.2 g/dL (6.4-8.9)
[2022-06-10] MEDS: Vancomycin 1,250 MG/262.5 ML IV.SOLN IVPB SCH (06:36)
[2022-06-10 06:42] LABS: Vitamin B12 628 pg/mL (250-1100)
[2022-06-10 07:29] LABS: Hepatitis B Surface Antigen Nonreactive (Nonreactive)
[2022-06-10 07:58] LABS: Hepatitis C Virus Antibody Nonreactive (Nonreactive)
[2022-06-10] MEDS: Cefepime HCl 2,000 MG in 0.9 % Sodium Chloride Mini Bag 100 ML IVPB SCH ×2 (09:46→17:02)
[2022-06-10] MEDS: Sennosides/Docusate Sodium TABLET PO SCH ×2 (09:47→20:34)
[2022-06-10] MEDS: atenoloL 50 MG TABLET PO SCH (09:47)
[2022-06-10] MEDS: Lactobacillus 1 EACH CAP.SPRINK PO SCH ×2 (09:47→20:34)
[2022-06-10] MEDS: Thiamine (B-1) 100 MG TABLET PO SCH (09:47)
[2022-06-10] MEDS: Megestrol Acetate 400 MG/10 ML UDC PO SCH (09:47)
[2022-06-10] MEDS: Aspirin Enteric Coated 81 MG Tablet PO SCH (09:47)
[2022-06-10] MEDS: GuaiFENesin/Dextromethorphan TABLET PO SCH ×2 (09:47→20:34)
[2022-06-10] MEDS: Vitamin B Complex/Vit C/Vit E 1 EACH TABLET PO SCH (09:47)
[2022-06-10] MEDS: Folic Acid 1 MG TABLET PO SCH (09:48)
[2022-06-10] MEDS: predniSONE 20 MG TABLET PO SCH (09:48)
[2022-06-10] MEDS: amLODIPine 5 MG TABLET PO SCH (09:48)
[2022-06-10] MEDS ORDERED: Calcium Gluconate 1gm/50mL 1 GM/50 ML BAG IVPB PRN (15:28)
[2022-06-11] MEDS: Cefepime HCl 2,000 MG in 0.9 % Sodium Chloride Mini Bag 100 ML IVPB SCH ×4 (00:42→23:26)
[2022-06-11] MEDS: Ipratropium 1 PUFF INHALER IH SCH ×6 (04:21→23:13)
[2022-06-11 07:10] LABS: Basophils % 0.1 %; Eosinophils # 0.3 K/mcL (0.0-0.6); Eosinophils % 1.9 %; Immature Granulocytes % 2.3 % (0-4); Lymphocytes # 0.9 K/mcL (0.6-4.6); Lymphocytes % 5.7 %; Mean Corpuscular HGB Conc 34.6 g/dL (31.6-35.5); Mean Corpuscular Hemoglobin 33.5 pg (28.0-33.3); Mean Corpuscular Volume 96.7 fL (83.0-100.0); Mean Platelet Volume 10.6 fL (9.4-12.4); Monocytes % 5.9 %; Neutrophils # 13.8 K/mcL (1.6-8.9); Platelet Count 127 K/mcL (140-400); Red Blood Count 2.69 M/mcL (4.19-5.50); Red Cell Distribution Width 12.6 % (11.5-14.5); Segmented Neutrophils % 84.1 %; White Blood Count 16.4 K/mcL (4.3-11.1)
[2022-06-11 07:34] LABS: Albumin 2.5 g/dL (3.5-5.7); Albumin/Globulin Ratio 1.5 (1.1-2.2); Bilirubin,Direct 0.1 mg/dL (0.0-0.2); Bilirubin,Indirect 0.4 mg/dL (0.0-1.0); Bilirubin,Total 0.5 mg/dL (0.3-1.0); Globulin 1.7 g/dL (2.4-3.5); Total Protein 4.2 g/dL (6.4-8.9)
[2022-06-11 07:35] LABS: BUN/Creatinine Ratio 41 (6-26); Blood Urea Nitrogen 11 mg/dL (8-23); Calcium 7.5 mg/dL (8.6-10.3); Carbon Dioxide 26 mEq/L (23-29); Chloride 98 mEq/L (98-107); Glucose 87 mg/dL (70-105); Osmolality,Calculated 263 (280-300); Potassium 3.4 mEq/L (3.5-5.1); Sodium 127 mEq/L (136-145)
[2022-06-11] MEDS: Thiamine (B-1) 100 MG TABLET PO SCH (09:45)
[2022-06-11] MEDS: GuaiFENesin/Dextromethorphan TABLET PO SCH ×2 (09:45→21:10)
[2022-06-11] MEDS: Sennosides/Docusate Sodium TABLET PO SCH ×2 (09:46→21:10)
[2022-06-11] MEDS: atenoloL 50 MG TABLET PO SCH (09:46)
[2022-06-11] MEDS: Aspirin Enteric Coated 81 MG Tablet PO SCH (09:46)
[2022-06-11] MEDS: Lactobacillus 1 EACH CAP.SPRINK PO SCH ×2 (09:47→21:10)
[2022-06-11] MEDS: Folic Acid 1 MG TABLET PO SCH (09:51)
[2022-06-11] MEDS: amLODIPine 5 MG TABLET PO SCH (09:51)
[2022-06-11] MEDS: Megestrol Acetate 400 MG/10 ML UDC PO SCH (09:51)
[2022-06-11] MEDS: Vitamin B Complex/Vit C/Vit E 1 EACH TABLET PO SCH (09:52)
[2022-06-11] MEDS ORDERED: Magnesium Sulfate 1 GM/102 ML PIGGYBACK IVPB ONE (11:24)
[2022-06-12 00:45] LABS: HIV-1 Ab Supplemental NEGATIVE (Negative); HIV-2 Ab Supplemental NEGATIVE (Negative)
[2022-06-12] MEDS: Ipratropium 1 PUFF INHALER IH SCH ×6 (03:36→23:33)
[2022-06-12] MEDS: Cefepime HCl 2,000 MG in 0.9 % Sodium Chloride Mini Bag 100 ML IVPB SCH ×2 (08:45→17:16)
[2022-06-12] MEDS: Folic Acid 1 MG TABLET PO SCH (08:49)
[2022-06-12] MEDS: Thiamine (B-1) 100 MG TABLET PO SCH (08:50)
[2022-06-12] MEDS: Vitamin B Complex/Vit C/Vit E 1 EACH TABLET PO SCH (08:50)
[2022-06-12] MEDS: atenoloL 50 MG TABLET PO SCH (08:50)
[2022-06-12] MEDS: Sennosides/Docusate Sodium TABLET PO SCH ×2 (08:50→21:30)
[2022-06-12] MEDS: Aspirin Enteric Coated 81 MG Tablet PO SCH (08:50)
[2022-06-12] MEDS: GuaiFENesin/Dextromethorphan TABLET PO SCH ×2 (08:50→21:29)
[2022-06-12] MEDS: amLODIPine 5 MG TABLET PO SCH (08:50)
[2022-06-12] MEDS: Lactobacillus 1 EACH CAP.SPRINK PO SCH ×2 (08:50→21:30)
[2022-06-12] MEDS: Megestrol Acetate 400 MG/10 ML UDC PO SCH (08:51)
[2022-06-12 09:34] LABS: Basophils % 0.2 %; Eosinophils # 0.2 K/mcL (0.0-0.6); Eosinophils % 1.3 %; Hematocrit 29.6 % (37.5-50.1); Hemoglobin 10.3 g/dL (12.9-16.9); Immature Granulocytes % 1.8 % (0-4); Lymphocytes # 0.7 K/mcL (0.6-4.6); Mean Corpuscular HGB Conc 34.8 g/dL (31.6-35.5); Mean Corpuscular Hemoglobin 33.3 pg (28.0-33.3); Mean Corpuscular Volume 95.8 fL (83.0-100.0); Mean Platelet Volume 10.8 fL (9.4-12.4); Monocytes # 0.8 K/mcL (0.0-1.3); Monocytes % 4.3 %; Neutrophils # 15.5 K/mcL (1.6-8.9); Platelet Count 182 K/mcL (140-400); Red Blood Count 3.09 M/mcL (4.19-5.50); Red Cell Distribution Width 12.6 % (11.5-14.5); Segmented Neutrophils % 88.4 %; White Blood Count 17.5 K/mcL (4.3-11.1)
[2022-06-12 09:55] LABS: BUN/Creatinine Ratio 37 (6-26); Blood Urea Nitrogen 11 mg/dL (8-23); Calcium 7.3 mg/dL (8.6-10.3); Carbon Dioxide 25 mEq/L (23-29); Chloride 98 mEq/L (98-107); Glucose 80 mg/dL (70-105); Osmolality,Calculated 262 (280-300); Potassium 3.8 mEq/L (3.5-5.1); Sodium 127 mEq/L (136-145)
[2022-06-12 09:58] LABS: Albumin 2.5 g/dL (3.5-5.7); Albumin/Globulin Ratio 1.4 (1.1-2.2); Bilirubin,Direct 0.1 mg/dL (0.0-0.2); Bilirubin,Indirect 0.5 mg/dL (0.0-1.0); Bilirubin,Total 0.6 mg/dL (0.3-1.0); Globulin 1.8 g/dL (2.4-3.5); Total Protein 4.3 g/dL (6.4-8.9)
[2022-06-12] MEDS: Calcium Gluconate 1gm/50mL 1 GM/50 ML BAG IVPB SCH ×2 (12:21→12:38)
[2022-06-12] MEDS: dexAMETHasone 4 MG TABLET PO SCH (12:21)
[2022-06-12] MEDS ORDERED: Pantoprazole 40 MG VIAL IVP ONE (12:31)
[2022-06-12] MEDS ORDERED: Famotidine 20 MG/2 ML VIAL IVP ONE (12:31)
[2022-06-12] MEDS ORDERED: GI Cocktail 40 ML EACH PO ONE (12:31)
[2022-06-13] MEDS: Cefepime HCl 2,000 MG in 0.9 % Sodium Chloride Mini Bag 100 ML IVPB SCH ×3 (00:40→17:48)
[2022-06-13] MEDS: Ipratropium 1 PUFF INHALER IH SCH ×6 (04:04→23:06)
[2022-06-13] MEDS: Lactobacillus 1 EACH CAP.SPRINK PO SCH ×2 (08:28→21:59)
[2022-06-13] MEDS: amLODIPine 5 MG TABLET PO SCH (08:28)
[2022-06-13] MEDS: atenoloL 50 MG TABLET PO SCH (08:28)
[2022-06-13] MEDS: Thiamine (B-1) 100 MG TABLET PO SCH (08:28)
[2022-06-13] MEDS: Folic Acid 1 MG TABLET PO SCH (08:28)
[2022-06-13] MEDS: Aspirin Enteric Coated 81 MG Tablet PO SCH (08:28)
[2022-06-13] MEDS: Sennosides/Docusate Sodium TABLET PO SCH ×2 (08:28→21:59)
[2022-06-13] MEDS: dexAMETHasone 4 MG TABLET PO SCH (08:29)
[2022-06-13] MEDS: GuaiFENesin/Dextromethorphan TABLET PO SCH ×2 (08:29→21:59)
[2022-06-13] MEDS: Vitamin B Complex/Vit C/Vit E 1 EACH TABLET PO SCH (08:29)
[2022-06-13 09:10] LABS: Basophils % 0.2 %; Eosinophils # 0.3 K/mcL (0.0-0.6); Hematocrit 28.2 % (37.5-50.1); Hemoglobin 9.7 g/dL (12.9-16.9); Immature Granulocytes % 2.2 % (0-4); Lymphocytes # 0.7 K/mcL (0.6-4.6); Lymphocytes % 4.2 %; Mean Corpuscular HGB Conc 34.4 g/dL (31.6-35.5); Mean Corpuscular Hemoglobin 33.8 pg (28.0-33.3); Mean Corpuscular Volume 98.3 fL (83.0-100.0); Mean Platelet Volume 10.4 fL (9.4-12.4); Monocytes # 0.7 K/mcL (0.0-1.3); Monocytes % 4.1 %; Neutrophils # 14.5 K/mcL (1.6-8.9); Platelet Count 191 K/mcL (140-400); Red Blood Count 2.87 M/mcL (4.19-5.50); Red Cell Distribution Width 12.8 % (11.5-14.5); Segmented Neutrophils % 87.3 %; White Blood Count 16.6 K/mcL (4.3-11.1)
[2022-06-13 09:30] LABS: Alanine Aminotransferase 69 Units/L (7-52); Albumin 2.3 g/dL (3.5-5.7); Albumin/Globulin Ratio 1.2 (1.1-2.2); Alkaline Phosphatase 69 Units/L (34-104); Aspartate Amino Transferase 26 Units/L (13-39); BUN/Creatinine Ratio 52 (6-26); Bilirubin,Direct 0.2 mg/dL (0.0-0.2); Bilirubin,Indirect 0.3 mg/dL (0.0-1.0); Bilirubin,Total 0.5 mg/dL (0.3-1.0); Blood Urea Nitrogen 11 mg/dL (8-23); Calcium 7.1 mg/dL (8.6-10.3); Carbon Dioxide 23 mEq/L (23-29); Chloride 98 mEq/L (98-107); Globulin 1.9 g/dL (2.4-3.5); Glucose 65 mg/dL (70-105); Osmolality,Calculated 262 (280-300); Potassium 3.5 mEq/L (3.5-5.1); Sodium 127 mEq/L (136-145); Total Protein 4.2 g/dL (6.4-8.9)
[2022-06-13] MEDS ORDERED: Dextrose Gel 15 GM/37.5 ML TUBE PO PRN ×2 (21:30)
[2022-06-13] MEDS ORDERED: D5% in Water 1,000 ML IVC PRN (21:30)
[2022-06-13] MEDS ORDERED: *HR* Dextrose 50 % in Water (Syg) 50 ML SYRINGE IVP PRN (21:30)
[2022-06-14 02:20] LABS: Hematocrit 26.5 % (37.5-50.1); Hemoglobin 9.3 g/dL (12.9-16.9); Mean Corpuscular HGB Conc 35.1 g/dL (31.6-35.5); Mean Corpuscular Hemoglobin 34.2 pg (28.0-33.3); Mean Corpuscular Volume 97.4 fL (83.0-100.0); Platelet Count 227 K/mcL (140-400); Red Blood Count 2.72 M/mcL (4.19-5.50); Red Cell Distribution Width 12.8 % (11.5-14.5); White Blood Count 19.1 K/mcL (4.3-11.1)
[2022-06-14 02:50] LABS: BUN/Creatinine Ratio 50 (6-26); Blood Urea Nitrogen 12 mg/dL (8-23); Carbon Dioxide 23 mEq/L (23-29); Chloride 100 mEq/L (98-107); Glucose 106 mg/dL (70-105); Magnesium 1.6 mg/dL (1.6-2.6); Osmolality,Calculated 266 (280-300); Sodium 128 mEq/L (136-145)
[2022-06-14] MEDS: Ipratropium 1 PUFF INHALER IH SCH ×6 (04:36→23:21)
[2022-06-14] MEDS: Acetaminophen 325 MG TABLET PO PRN (05:29)
[2022-06-14] MEDS: dexAMETHasone 4 MG TABLET PO SCH (09:59)
[2022-06-14] MEDS: Lactobacillus 1 EACH CAP.SPRINK PO SCH ×2 (10:00→21:33)
[2022-06-14] MEDS: Thiamine (B-1) 100 MG TABLET PO SCH (10:00)
[2022-06-14] MEDS: Vitamin B Complex/Vit C/Vit E 1 EACH TABLET PO SCH (10:00)
[2022-06-14] MEDS: GuaiFENesin/Dextromethorphan TABLET PO SCH ×2 (10:00→21:34)
[2022-06-14] MEDS: Folic Acid 1 MG TABLET PO SCH (10:00)
[2022-06-14] MEDS: Sennosides/Docusate Sodium TABLET PO SCH ×2 (10:00→21:33)
[2022-06-14] MEDS: atenoloL 50 MG TABLET PO SCH (10:01)
[2022-06-14] MEDS: Aspirin Enteric Coated 81 MG Tablet PO SCH (10:01)
[2022-06-14] MEDS: amLODIPine 5 MG TABLET PO SCH (10:01)
[2022-06-14] MEDS ORDERED: Calcium Gluconate 1gm/50mL 1 GM/50 ML BAG IVPB ONE (16:04)
[2022-06-15] MEDS: Ipratropium 1 PUFF INHALER IH SCH ×6 (04:14→23:01)
[2022-06-15 06:03] LABS: Hematocrit 28.1 % (37.5-50.1); Mean Corpuscular HGB Conc 35.6 g/dL (31.6-35.5); Mean Corpuscular Hemoglobin 33.9 pg (28.0-33.3); Mean Corpuscular Volume 95.3 fL (83.0-100.0); Platelet Count 290 K/mcL (140-400); Red Blood Count 2.95 M/mcL (4.19-5.50); Red Cell Distribution Width 12.9 % (11.5-14.5); White Blood Count 14.1 K/mcL (4.3-11.1)
[2022-06-15 06:39] LABS: BUN/Creatinine Ratio 32 (6-26); Blood Urea Nitrogen 8 mg/dL (8-23); Calcium 7.2 mg/dL (8.6-10.3); Carbon Dioxide 24 mEq/L (23-29); Chloride 100 mEq/L (98-107); Glucose 109 mg/dL (70-105); Magnesium 1.9 mg/dL (1.6-2.6); Osmolality,Calculated 267 (280-300); Potassium 3.6 mEq/L (3.5-5.1); Sodium 129 mEq/L (136-145)
[2022-06-15 09:26] LABS: MMA (VIT B12 STATUS) 0.12 umol/L (0.00-0.40)
[2022-06-15] MEDS: Lactobacillus 1 EACH CAP.SPRINK PO SCH ×3 (09:52→21:42)
[2022-06-15] MEDS: Sennosides/Docusate Sodium TABLET PO SCH ×3 (09:52→21:42)
[2022-06-15] MEDS: Folic Acid 1 MG TABLET PO SCH (09:52)
[2022-06-15] MEDS: Aspirin Enteric Coated 81 MG Tablet PO SCH (09:52)
[2022-06-15] MEDS: amLODIPine 5 MG TABLET PO SCH (09:52)
[2022-06-15] MEDS: GuaiFENesin/Dextromethorphan TABLET PO SCH ×3 (09:52→21:41)
[2022-06-15] MEDS: atenoloL 50 MG TABLET PO SCH (09:53)
[2022-06-15] MEDS: Thiamine (B-1) 100 MG TABLET PO SCH (09:53)
[2022-06-15] MEDS: Vitamin B Complex/Vit C/Vit E 1 EACH TABLET PO SCH (09:53)
[2022-06-15] MEDS ORDERED: Simethicone 40 MG/0.6 ML MLS IR ONE (10:02)
[2022-06-15] MEDS ORDERED: Furosemide 40 MG/4 ML VIAL IVP ONE ×2 (11:52→14:15)
[2022-06-16] MEDS: Ipratropium 1 PUFF INHALER IH SCH ×6 (03:51→23:34)
[2022-06-16 06:20] LABS: Basophils % 0.2 %; Eosinophils # 0.2 K/mcL (0.0-0.6); Eosinophils % 1.8 %; Hematocrit 28.8 % (37.5-50.1); Lymphocytes # 0.8 K/mcL (0.6-4.6); Lymphocytes % 5.7 %; Mean Corpuscular HGB Conc 34.7 g/dL (31.6-35.5); Mean Corpuscular Hemoglobin 33.4 pg (28.0-33.3); Mean Corpuscular Volume 96.3 fL (83.0-100.0); Mean Platelet Volume 9.7 fL (9.4-12.4); Monocytes # 0.9 K/mcL (0.0-1.3); Monocytes % 6.5 %; Neutrophils # 11.2 K/mcL (1.6-8.9); Platelet Count 363 K/mcL (140-400); Red Blood Count 2.99 M/mcL (4.19-5.50); Red Cell Distribution Width 12.9 % (11.5-14.5); Segmented Neutrophils % 84.8 %; White Blood Count 13.1 K/mcL (4.3-11.1)
[2022-06-16 06:33] LABS: BUN/Creatinine Ratio 26 (6-26); Blood Urea Nitrogen 6 mg/dL (8-23); Calcium 7.3 mg/dL (8.6-10.3); Carbon Dioxide 26 mEq/L (23-29); Chloride 98 mEq/L (98-107); Glucose 71 mg/dL (70-105); Osmolality,Calculated 266 (280-300); Potassium 3.2 mEq/L (3.5-5.1); Sodium 130 mEq/L (136-145)
[2022-06-16] MEDS ORDERED: Potassium Chloride Elixir 20 MEQ/15 ML UDC PO ONE (07:35)
[2022-06-16] MEDS: Folic Acid 1 MG TABLET PO SCH (11:15)
[2022-06-16] MEDS: GuaiFENesin/Dextromethorphan TABLET PO SCH ×2 (11:15→21:08)
[2022-06-16] MEDS: Aspirin Enteric Coated 81 MG Tablet PO SCH (11:15)
[2022-06-16] MEDS: Lactobacillus 1 EACH CAP.SPRINK PO SCH ×2 (11:15→21:08)
[2022-06-16] MEDS: amLODIPine 5 MG TABLET PO SCH (11:15)
[2022-06-16] MEDS: Sennosides/Docusate Sodium TABLET PO SCH ×2 (11:16→21:09)
[2022-06-16] MEDS: Thiamine (B-1) 100 MG TABLET PO SCH (11:16)
[2022-06-16] MEDS: Vitamin B Complex/Vit C/Vit E 1 EACH TABLET PO SCH (11:16)
[2022-06-16] MEDS: atenoloL 50 MG TABLET PO SCH (11:16)
[2022-06-16] MEDS: Calcium Gluconate 1gm/50mL 1 GM/50 ML BAG IVPB SCH ×2 (18:59→19:07)
[2022-06-16] MEDS: Acetaminophen 325 MG TABLET PO PRN (21:08)
[2022-06-17 03:29] LABS: BUN/Creatinine Ratio 29 (6-26); Blood Urea Nitrogen 10 mg/dL (8-23); Calcium 7.7 mg/dL (8.6-10.3); Carbon Dioxide 27 mEq/L (23-29); Chloride 98 mEq/L (98-107); Glucose 123 mg/dL (70-105); Osmolality,Calculated 272 (280-300); Sodium 131 mEq/L (136-145)
[2022-06-17] MEDS: Ipratropium 1 PUFF INHALER IH SCH ×6 (04:02→23:12)
[2022-06-17] MEDS: Aspirin Enteric Coated 81 MG Tablet PO SCH (07:43)
[2022-06-17] MEDS: Vitamin B Complex/Vit C/Vit E 1 EACH TABLET PO SCH (07:44)
[2022-06-17] MEDS: GuaiFENesin/Dextromethorphan TABLET PO SCH ×2 (07:44→20:19)
[2022-06-17] MEDS: Folic Acid 1 MG TABLET PO SCH (07:44)
[2022-06-17] MEDS: Sennosides/Docusate Sodium TABLET PO SCH ×2 (07:44→20:19)
[2022-06-17] MEDS: atenoloL 50 MG TABLET PO SCH (07:44)
[2022-06-17] MEDS: amLODIPine 5 MG TABLET PO SCH (07:44)
[2022-06-17] MEDS: Thiamine (B-1) 100 MG TABLET PO SCH (07:44)
[2022-06-17] MEDS: Lactobacillus 1 EACH CAP.SPRINK PO SCH ×2 (07:44→20:19)
[2022-06-17] MEDS ORDERED: E-Z-HD (BARIUM SULF) SUSPENSION PO ONE (18:10)
[2022-06-17] MEDS ORDERED: E-Z-PAQUE (BARIUM SULF) SUSP 1 BOTTLE PO ONE (18:10)
[2022-06-18 03:32] LABS: BUN/Creatinine Ratio 39 (6-26); Blood Urea Nitrogen 13 mg/dL (8-23); Calcium 7.2 mg/dL (8.6-10.3); Carbon Dioxide 25 mEq/L (23-29); Chloride 101 mEq/L (98-107); Glucose 93 mg/dL (70-105); Osmolality,Calculated 276 (280-300); Potassium 2.7 mEq/L (3.5-5.1); Sodium 133 mEq/L (136-145)
[2022-06-18] MEDS: Ipratropium 1 PUFF INHALER IH SCH ×6 (04:27→23:08)
[2022-06-18] MEDS: Aspirin Enteric Coated 81 MG Tablet PO SCH ×2 (13:14→15:08)
[2022-06-18] MEDS: Lactobacillus 1 EACH CAP.SPRINK PO SCH ×3 (13:14→20:38)
[2022-06-18] MEDS: amLODIPine 5 MG TABLET PO SCH ×2 (13:15→15:08)
[2022-06-18] MEDS: GuaiFENesin/Dextromethorphan TABLET PO SCH ×3 (13:15→20:38)
[2022-06-18] MEDS: Folic Acid 1 MG TABLET PO SCH ×2 (13:15→17:02)
[2022-06-18] MEDS: Sennosides/Docusate Sodium TABLET PO SCH ×3 (13:15→20:38)
[2022-06-18] MEDS: Vitamin B Complex/Vit C/Vit E 1 EACH TABLET PO SCH ×2 (13:15→17:02)
[2022-06-18] MEDS: Thiamine (B-1) 100 MG TABLET PO SCH ×2 (13:15→17:02)
[2022-06-18] MEDS: atenoloL 50 MG TABLET PO SCH ×3 (13:15→15:09)
[2022-06-18 20:08] VITALS: O2SAT 100
[2022-06-19] MEDS: Ipratropium 1 PUFF INHALER IH SCH ×3 (04:16→11:10)
[2022-06-19] MEDS: Aspirin Enteric Coated 81 MG Tablet PO SCH (08:02)
[2022-06-19] MEDS: GuaiFENesin/Dextromethorphan TABLET PO SCH (08:02)
[2022-06-19] MEDS: Folic Acid 1 MG TABLET PO SCH (08:02)
[2022-06-19] MEDS: Lactobacillus 1 EACH CAP.SPRINK PO SCH (08:02)
[2022-06-19] MEDS: amLODIPine 5 MG TABLET PO SCH (08:02)
[2022-06-19] MEDS: Thiamine (B-1) 100 MG TABLET PO SCH (08:03)
[2022-06-19] MEDS: Vitamin B Complex/Vit C/Vit E 1 EACH TABLET PO SCH (08:03)
[2022-06-19] MEDS: Sennosides/Docusate Sodium TABLET PO SCH (08:03)
[2022-06-19 11:21] VITALS: BP 109/61; PULSE 84; TEMP 97
== END 2022-06-19 11:38 | DRG 640 ==
LOC: 2NNU → SUATTDRO 05-30 06:42 → 3NENU 06-03 20:20
PROVIDERS: ADMIT Student in an Organized Health Care Education/Training Program; ATTEND Internal Medicine